=== PATIENT | male | born 1990 | race Caucasian/White ===

== ENCOUNTER 2016-06-16 05:35 | Day surgery (SDC) | payer BC ==
--- NOTE | ~2016-06-16 | OP ---
Record Of Operation [facility] [address] [place]. [address] NAME: DONNA DRUMMOND : 89 STATUS : REG [facility] PAT#: [id number] AGE: 26 ADM/REG DATE : 06/16/16 MR#: [id number] REPORT SERV DATE: 06/16/16 DICTATED BY: LEO NULL II DATE: 06/16/16 REPORT STATUS : Draft TRANSCRIBED BY: MODL DATE: 06/16/16 DATE OF PROCEDURE: 06/16/2016 PREOPERATIVE DIAGNOSES: 1. Diskogenic cervical neck pain. 2. Radiculitis with upper extremities. POSTOPERATIVE DIAGNOSES: 1. Diskogenic cervical neck pain. 2. Radiculitis with upper extremities. PROCEDURE: 1. C6-7 total disk replacement. 2. Use of the microscope. SURGEON: Leo Null M.D. FLUIDS: One liter lactated Ringer's. ESTIMATED BLOOD LOSS: 10 mL. DRAINS: None. COMPLICATIONS: None. IMPLANTS: LDR Mobi-C artificial disk replacement. ANTIBIOTIC: Preoperatively. 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 He and I discussed his neck pain. He reports he has had for several years. He describes worse with extension and rotation as well as more uncomfortable trying to get his head comfortable on the pillow at night. We discussed the merits of continuing nonoperative care. He already had a conservative care. I did not believe facet injections would likely be of assistance nor epidural steroid injections. I discussed with him the rates of success versus failure of artificial disk replacement and fusion to decrease the neck pain. I overall felt that his best course of action was the artificial disk replacement. Again, we discussed the risks of the surgery as well as the benefits and the success rates versus failure rates. He understood. He is a very intelligent young man and wished to proceed. DESCRIPTION OF PROCEDURE: After informed consent was obtained, the patient was brought to the operating room at his request and general anesthesia achieved. He was placed in the supine position and the iliac crest and neck, prepped and draped in a sterile fashion. The right-sided transverse incision was performed and the retropharyngeal approach executed. The dissection was performed on the longus colli muscles followed by placement of the black Record Of Operation [facility] [address] [place]. [address] NAME: DONNA DRUMMOND : 89 STATUS : REG [facility] PAT#: [id number] AGE: 26 ADM/REG DATE : 06/16/16 MR#: [id number] REPORT SERV DATE: 06/16/16 DICTATED BY: LEO NULL II DATE: 06/16/16 REPORT STATUS : Draft TRANSCRIBED BY: MODGila DATE: 06/16/16 belt retractors underneath the longus colli muscles. The Snyder pins were now placed in the C6 and C7 and the microscope brought into place. Under microscopic visualization, the diskectomy was now initiated with the knife followed by use of the pituitary rongeurs, Kerrison rongeurs, and curettes. The endplates were denuded of their cartilage. The concavity of C6 was maintained per the surgical technique for this particular disk replacement. A more parallel endplate was created C7. We were able to now remove the foraminal osteophytes and overall perform the uncovertebral joint decompression. At this point, under lateral fluoroscopy, we did trial disk replacement system. The appropriate size was chosen. We used more of the medium width. The artificial disk replacement system was then assembled on the back table and placed into C6-7 under lateral fluoroscopy. Excellent fit was obtained. The Snyder pins were now removed and hemostasis obtained. Fluoroscopy once again confirmed acceptable placement of the total disk replacement system. Standard closure was now performed. The patient extubated and transferred to PACU in stable condition. I had a long conversation with his and mother, father, and grandmother. We overall discussed with him the preoperative findings as well as the intraoperative details and then postop recovery. At approximately 12 o'clock, I discussed with the nurse and he was comfortable and stable and still desiring to go home. His neck was soft and supple and he was having no shortness of breath. He was then discharged home with appropriate followup, and I am going allow him to return to work once he is comfortable. ALBERT/TORY Leo Null II, M.D. / [id number] CC: Natty [place] II, III, D.O.
[~2016-06-16 05:35] MED LIST: PAX10 PO; PROAIR HFA INH; PROAIRRESP INH; VYVANSE50 MG PO
== END 2016-06-16 23:59 | disposition home or self-care (01) ==
LOC: SDC 05:35
PROVIDERS: Orthopaedic Surgery
PROC: 0RT30ZZ Resection of Cervical Vertebral Disc, Open Approach (ICD-10-PCS; 2016-06-16)
PROC: 00NW0ZZ Release Cervical Spinal Cord, Open Approach (ICD-10-PCS; principal; 2016-06-16 06:45)
DX: M50.123 Cervical disc disorder at C6-C7 level with radiculopathy (principal); M41.9 Scoliosis, unspecified; J45.909 Unspecified asthma, uncomplicated; F90.9 Attention-deficit hyperactivity disorder, unspecified type; F41.9 Anxiety disorder, unspecified; F17.290 Nicotine dependence, other tobacco product, uncomplicated; Z90.10 Acquired absence of unspecified breast and nipple; Z79.899 Other long term (current) drug therapy
CPT/HCPCS: 82962; 87641; 88304; 88311; A9270-GY; J0690; J2250; J2370; J2405; J2710; J3010; J3370